=== PATIENT | female | born 1935 | race Caucasian/White ===

== ENCOUNTER → 2016-03-25 | Outpatient (CLI) | payer MEDICARE ==
[~2016-03-25] MED LIST: AC325T PO; ACET325T38 PO; APIX2.5T2 PO; ASPI81TA42 PO; ATOR10TA PO; BISM262O PO; BUSP10TA95 PO; CALC600T12 PO; CARMOL TOP; CARV12.52 PO; CHOL200014 PO; CHOL5000 PO; CIPR250T3 PO; CLIN-79 PO; DEXT1DRO8 OP; DULA0.75 SQ; FENT1PAT6 TD; FRSM40T PO; GUAI5SYR PO; LANTUS SOL100 UNIT/1 SC; LISI1TAB8 PO; LSNP20T PO; MAG-59 PO; METF500T4 PO; MIRT15TA98 PO; MTL2.5T PO; MULT-619 PO; OMEG1CAP14 PO; OMEG1CAP58 PO; PAMI30VI8 SC; PANT40TA3 PO; PARO40TA3 PO; POTA10CA2 PO; PROTOPIC 0.1% TOP; TERA1CAP3 PO; TRIA80CR3 TOP; VITA-189 PO; [UNRECOGNIZED DRUG - CODE] TOP
--- NOTE | 2016-03-25 11:45 | Diagnostic Imaging Report ---
EXAM: Left lower extremity venous Doppler ultrasound. DATE: March 25, 2016. INDICATION: 80-year-old female, pain and swelling of the left lower extremity. COMPARISON: February 15, 2016. FINDINGS: The left common femoral vein, left superficial femoral vein, and left popliteal vein all demonstrate blood flow with response to augmentation. The left peroneal vein and posterior tibial vein are patent. Visualized portions of the left greater saphenous vein and deep femoral vein are patent. IMPRESSION: Negative for left lower extremity deep venous thrombosis. Dictated by: Dictated on workstation # [id number]
== END ==
LOC: RAD 10:31
PROVIDERS: ATTEND Family Medicine
DX: M79.605 Pain in left leg (principal)
CPT/HCPCS: 85025; 86140

== ENCOUNTER → 2016-03-25 | Outpatient (REF) | payer MEDICARE ==
[2016-03-25 13:16] LABS: BASOPHILS % (AUTO) 0 % (0-2); EOSINOPHILS # (AUTO) 0.3 10^3uL; EOSINOPHILS % (AUTO) 5 % (0-4); MEAN CORPUSCULAR HGB CONC 31.8 g/dL (31.0-37.0); MEAN CORPUSCULAR VOLUME 88 FL (80-100); MEAN PLATELET VOLUME 11.4 FL (6.0-9.5); MONOCYTES # (AUTO) 0.6 X10^3; MONOCYTES % (AUTO) 10 % (3-11); NEUTROPHILS # (AUTO) 3.9 X10^3; NEUTROPHILS % (AUTO) 67 % (51-67); PLATELET COUNT 274 10^3uL (150-450); WHITE BLOOD COUNT 5.88 10^3uL (4.0-11.0)
== END ==
LOC: LAB 13:04
PROVIDERS: ATTEND Family Medicine
DX: L03.116 Cellulitis of left lower limb (principal)
CPT/HCPCS: 85025; 86140

== ENCOUNTER → 2016-03-28 | Outpatient (REF) | payer MEDICARE ==
[2016-03-28 11:22] LABS: ANION GAP 18.3 MEQ/L (3-15)
== END ==
LOC: LAB 10:42
PROVIDERS: ATTEND Family Medicine
DX: L03.116 Cellulitis of left lower limb (principal); R60.0 Localized edema
CPT/HCPCS: 80048

== ENCOUNTER → 2016-04-04 | Outpatient (REF) | payer MEDICARE ==
[2016-04-04 14:10] LABS: ANION GAP 13.6 MEQ/L (3-15)
== END ==
LOC: LAB 13:56
PROVIDERS: ATTEND Family Medicine
DX: I10 Essential (primary) hypertension (principal); N18.3 Chronic kidney disease, stage 3 (moderate)
CPT/HCPCS: 80048

== ENCOUNTER → 2016-04-26 | Outpatient (REF) | payer MEDICARE ==
[2016-04-26 11:54] LABS: MEAN CORPUSCULAR HEMOGLOBIN 28.9 PG (26.0-34.0); MEAN CORPUSCULAR HGB CONC 34.2 g/dL (31.0-37.0); MEAN CORPUSCULAR VOLUME 84 FL (80-100); MEAN PLATELET VOLUME 12.4 FL (6.0-9.5); PLATELET COUNT 217 10^3uL (150-450); WHITE BLOOD COUNT 5.52 10^3uL (4.0-11.0)
[2016-04-26 12:15] LABS: ANION GAP 17.3 MEQ/L (3-15)
[2016-04-26 12:17] LABS: BAND NEUTROPHILS % 0 % (0-6); EOSINOPHILS % 5 % (0-4); LYMPHOCYTES # 1.9 #; MONOCYTES # 0.5 #; MONOCYTES % 10 % (3-11); POLYCHROMASIA SLIGHT; RBC MORPH SEE REFERENCE (NORMAL); SEGMENTED NEUTROPHILS % 47 % (51-67); TOTAL CELLS COUNTED 100
[2016-04-26 12:18] LABS: ANISOCYTOSIS SLIGHT
== END ==
LOC: LAB 11:00
PROVIDERS: ATTEND Family Medicine
DX: N18.3 Chronic kidney disease, stage 3 (moderate) (principal); E11.65 Type 2 diabetes mellitus with hyperglycemia
CPT/HCPCS: 80048; 85025

== ENCOUNTER 2016-04-30 09:51 | Emergency (ER) | payer MEDICARE ==
[~2016-04-30] VITALS: Ht 160 cm; Wt 125.0 kg
[2016-04-30 10:48] LABS: ANION GAP 14.8 MEQ/L (3-15); CALCULATED IONIZED CALCIUM 4.2 mg/dL (3.8-4.6); TOTAL PROTEIN 8.1 g/dL (6.4-8.5)
[2016-04-30 10:52] LABS: BASOPHILS % (AUTO) 1 % (0-2); EOSINOPHILS # (AUTO) 0.2 10^3uL; EOSINOPHILS % (AUTO) 3 % (0-4); LYMPHOCYTES # (AUTO) 1.2 X10^3; MEAN CORPUSCULAR HEMOGLOBIN 28.7 PG (26.0-34.0); MEAN CORPUSCULAR HGB CONC 33.9 g/dL (31.0-37.0); MEAN CORPUSCULAR VOLUME 85 FL (80-100); MONOCYTES # (AUTO) 0.9 X10^3; MONOCYTES % (AUTO) 15 % (3-11); NEUTROPHILS # (AUTO) 3.5 X10^3; NEUTROPHILS % (AUTO) 60 % (51-67); PLATELET COUNT 258 10^3uL (150-450)
[2016-04-30 10:58] LABS: BILIRUBIN,URINE Negative (Negative); CLARITY,URINE Clear; COLOR,URINE Yellow; GLUCOSE, URINE (UA) Negative (Negative); LEUKOCYTE ESTERASE ,URINE Negative (Negative); UROBILINOGEN,URINE 0.2 mg/dL (0.2-1.0)
[2016-04-30] MEDS ORDERED: APIXABAN 2.5 MG (ELIQUIS) TABLET PO ONE (13:45)
[2016-04-30 14:44] VITALS: BP 106/72
== END 2016-04-30 14:45 | disposition home or self-care (01) ==
LOC: ED 09:52
DX: R00.2 Palpitations (principal); R79.89 Other specified abnormal findings of blood chemistry
CPT/HCPCS: 36415; 71010; 71020; 80053; 81003; 82550; 82553; 83880; 84443; 84484; 85025; 85379; 85610; 86140; 93005; 99285; A9270; 93010

== ENCOUNTER → 2016-05-02 | Outpatient (CLI) | payer MEDICARE | LOC: RAD 09:14 | PROVIDERS: ATTEND Family Medicine | DX: R09.02 Hypoxemia (principal); M79.89 Other specified soft tissue disorders; R79.1 Abnormal coagulation profile | CPT/HCPCS: 71020; 78582; A9539; A9540 ==

== ENCOUNTER → 2016-05-10 | Outpatient (REF) | payer MEDICARE | LOC: LAB 16:45 | PROVIDERS: ATTEND Family Medicine | DX: L03.116 Cellulitis of left lower limb (principal) | CPT/HCPCS: 87070; 87205 ==

== ENCOUNTER → 2016-05-24 | Outpatient (CLI) | payer MEDICARE ==
[2016-05-24 14:50] LABS: ANION GAP 14.2 MEQ/L (3-15)
== END ==
LOC: LAB 14:29
PROVIDERS: ATTEND Physician Assistant Surgical
DX: I10 Essential (primary) hypertension (principal)
CPT/HCPCS: 36415; 80048

== ENCOUNTER → 2016-07-19 | Outpatient (REF) | payer MEDICARE ==
[2016-07-19 17:00] LABS: ANION GAP 16.3 MEQ/L (3-15)
== END ==
LOC: LAB 16:11
PROVIDERS: ATTEND Family Medicine
DX: N18.3 Chronic kidney disease, stage 3 (moderate) (principal); E11.65 Type 2 diabetes mellitus with hyperglycemia
CPT/HCPCS: 80048

== ENCOUNTER → 2016-07-21 | Outpatient (CLI) | payer MEDICARE ==
--- NOTE | 2016-07-21 20:04 | Diagnostic Imaging Report ---
INDICATION: Left leg pain, venous stasis ulcers. Left leg arterial Doppler study performed in routine fashion with color flow Doppler and waveform analysis. FINDINGS: There is triphasic flow throughout. There are no occluded segments. Ankle-brachial index was 1.03. There is some mild area of velocity elevation in the mid SFA and common femoral artery but no high-grade stenosis seen. IMPRESSION: No evidence of significant stenosis or occlusion in the left lower extremity arterial system. Dictated by: Dictated on workstation # [id number]
== END ==
LOC: RAD 13:32
PROVIDERS: ATTEND Family Medicine
DX: L97.821 Non-pressure chronic ulcer of other part of left lower leg limited to breakdown of skin (principal)
CPT/HCPCS: 93926

== ENCOUNTER → 2016-08-16 | Outpatient (REF) | payer MEDICARE | LOC: LAB 16:16 | PROVIDERS: ATTEND Family Medicine | DX: L97.329 Non-pressure chronic ulcer of left ankle with unspecified severity (principal) | CPT/HCPCS: 87070; 87075 ==